=== PATIENT | female | born 2000 | race Asian ===

== ENCOUNTER 2018-11-25 12:17 | Emergency (ER) | payer OTHER ==
[~2018-11-25] VITALS: Wt 50.1 kg
[2018-11-25 12:55] VITALS: BP 110/70; PULSE 76; RESP 20
[2018-11-25] MEDS ORDERED: IBUP-1561 PO (16:45)
[2018-11-25] MEDS ORDERED: ACET500C5 PO (16:46)
[2018-11-25] MEDS ORDERED: NITR-58 PO (16:46)
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
== END 2018-11-25 17:13 | disposition home or self-care (01) ==
LOC: FTE 12:17
DX: M54.2 Cervicalgia (principal); M54.6 Pain in thoracic spine; M25.511 Pain in right shoulder; M25.512 Pain in left shoulder
CPT/HCPCS: 72040; 81001; 81025; Z7502